=== PATIENT | female | born 1995 | race Caucasian/White ===

== ENCOUNTER 2017-08-27 13:15 | Emergency (ER) | payer OTHER ==
[~2017-08-27] VITALS: Ht 162.6 cm; Wt 104.3 kg
[~2017-08-27 13:15] MED LIST: ALBU90OI INH; Adipex-P37.5 MG PO; CEPH500 PO; Colace100 MG PO; DOXY100 PO; Monodox100 MG PO; PENVK500 PO; PROCODE120 PO; Percocet 5-3251 EACH PO; RXONDA4ODT MM; SPACE CHAMBER1 EACH MC
[2017-08-29] MEDS ORDERED: Amoxil400 MG/5 M PO (12:10)
== END 2017-08-27 15:12 | disposition left against medical advice (07) ==
LOC: ER 13:15
DX: Z53.21 Procedure and treatment not carried out due to patient leaving prior to being seen by health care provider (principal)